=== PATIENT | female | born 1975 | race Caucasian/White ===

== ENCOUNTER → 2020-03-31 14:50 | Outpatient (BNVA) | payer MEDICARE, SELFPAY | PROVIDERS: Family Provider Family Medicine; PCP Nurse Practitioner; Visit Provider Family Medicine | DX: I10 Essential (primary) hypertension (principal); G47.10 Hypersomnia, unspecified; E66.9 Obesity, unspecified; J30.89 Other allergic rhinitis; G54.6 Phantom limb syndrome with pain; K21.9 Gastro-esophageal reflux disease without esophagitis; F17.219 Nicotine dependence, cigarettes, with unspecified nicotine-induced disorders; D64.9 Anemia, unspecified; Z79.899 Other long term (current) drug therapy; Z68.31 Body mass index [BMI] 31.0-31.9, adult; Z12.31 Encounter for screening mammogram for malignant neoplasm of breast | CPT/HCPCS: 80053; 80061; 82044; 82306; 82728; 83550; 85025 ==

== ENCOUNTER 2020-05-22 14:00 | Outpatient (CLI) | payer MEDICARE, SELFPAY ==
--- NOTE | 2020-05-22 14:00 | MM_ITS ---
WS: [id number] BILATERAL SCREENING DIGITAL MAMMOGRAM WITH CAD HISTORY: screening mammogram COMPARISON: None available. Bilateral CC and MLO views submitted. Computer aided detection analyzed. Breast composition: There are scattered areas of fibroglandular density. No suspicious masses, microc alcifications or architectural distortion. MM/[place] [id number] IMPRESSION: BI-RADS: 1-Negative FOLLOW UP: 1 Year Follow-up
== END 2020-05-22 14:01 | disposition home or self-care (01) ==
LOC: RADSHAW 14:03
PROVIDERS: PCP Family Medicine; Visit Provider Family Medicine
DX: Z12.31 Encounter for screening mammogram for malignant neoplasm of breast (principal)
CPT/HCPCS: 77067

== ENCOUNTER 2020-06-22 20:00 | Outpatient (CLI) | payer MEDICARE, SELFPAY | END 2020-06-22 20:01 | disposition home or self-care (01) | LOC: SLEEP 06-23 08:43 | PROVIDERS: PCP Family Medicine; Visit Provider Family Medicine | DX: G47.10 Hypersomnia, unspecified (principal); R06.83 Snoring; R53.83 Other fatigue | CPT/HCPCS: 80048; 95810 ==

== ENCOUNTER → 2020-06-24 13:38 | Outpatient (BNVA) | payer MEDICARE, SELFPAY | PROVIDERS: PCP Family Medicine; Visit Provider Family Medicine | DX: I10 Essential (primary) hypertension (principal) | CPT/HCPCS: 80048 ==

== ENCOUNTER → 2020-11-19 12:04 | Outpatient (BNVA) | payer MEDICARE, SELFPAY | PROVIDERS: PCP Family Medicine; Visit Provider Family Medicine | DX: I10 Essential (primary) hypertension (principal); E78.5 Hyperlipidemia, unspecified; K21.9 Gastro-esophageal reflux disease without esophagitis | CPT/HCPCS: 80053; 80061; 85025 ==

== ENCOUNTER → 2020-11-20 09:13 | Outpatient (BNVA) | payer MEDICARE, SELFPAY | PROVIDERS: PCP Family Medicine; Visit Provider Family Medicine | DX: I10 Essential (primary) hypertension (principal); E78.5 Hyperlipidemia, unspecified; K21.9 Gastro-esophageal reflux disease without esophagitis; D64.9 Anemia, unspecified; F17.219 Nicotine dependence, cigarettes, with unspecified nicotine-induced disorders | CPT/HCPCS: 82607 ==

== ENCOUNTER → 2021-03-01 12:23 | Outpatient (BNVA) | payer MEDICARE, SELFPAY | PROVIDERS: PCP Family Medicine; Visit Provider Family Medicine | DX: D50.8 Other iron deficiency anemias (principal); E78.5 Hyperlipidemia, unspecified; Z71.89 Other specified counseling | CPT/HCPCS: 85025 ==

== ENCOUNTER → 2021-05-20 11:03 | Outpatient (BNVA) | payer MEDICARE, SELFPAY | PROVIDERS: PCP Family Medicine; Visit Provider Family Medicine | DX: E78.5 Hyperlipidemia, unspecified (principal); I10 Essential (primary) hypertension; E53.8 Deficiency of other specified B group vitamins; Z79.899 Other long term (current) drug therapy | CPT/HCPCS: 80053; 80061; 82607; 85025 ==

== ENCOUNTER → 2022-01-14 10:49 | Outpatient (BNVA) | payer MEDICARE, SELFPAY | PROVIDERS: PCP Family Medicine; Visit Provider Family Medicine | DX: I10 Essential (primary) hypertension (principal); E78.5 Hyperlipidemia, unspecified; G54.6 Phantom limb syndrome with pain; K21.9 Gastro-esophageal reflux disease without esophagitis; J30.89 Other allergic rhinitis | CPT/HCPCS: 80053 ==

== ENCOUNTER → 2022-07-15 10:07 | Outpatient (BNVA) | payer MEDICARE, SELFPAY | PROVIDERS: PCP Family Medicine; Visit Provider Family Medicine | DX: I10 Essential (primary) hypertension (principal); E78.5 Hyperlipidemia, unspecified; F41.1 Generalized anxiety disorder | CPT/HCPCS: 80053; 80061; 85025 ==

== ENCOUNTER → 2022-08-04 11:01 | Outpatient (BNVA) | payer MEDICARE, SELFPAY | PROVIDERS: PCP Family Medicine; Visit Provider Family Medicine | DX: F41.1 Generalized anxiety disorder (principal); I10 Essential (primary) hypertension | CPT/HCPCS: 82043 ==

== ENCOUNTER → 2022-08-08 12:53 | Outpatient (BNVA) | payer MEDICARE, SELFPAY | PROVIDERS: PCP Family Medicine; Visit Provider Family Medicine | DX: R05.9 Cough, unspecified (principal); J20.8 Acute bronchitis due to other specified organisms; B96.89 Other specified bacterial agents as the cause of diseases classified elsewhere; R05.1 Acute cough; F17.219 Nicotine dependence, cigarettes, with unspecified nicotine-induced disorders | CPT/HCPCS: 87400; 87426 ==

== ENCOUNTER 2023-01-03 15:05 | Outpatient (CLI) | payer MEDICARE, SELFPAY ==
--- NOTE | 2023-01-03 15:12 | MM_ITS ---
WS: [id number] . BILATERAL SCREENING DIGITAL TOMOSYNTHESIS MAMMOGRAM WITH CAD HISTORY: screening mammogram COMPARISON: 05/22/2020 Bilateral CC and MLO views with tomosynthesis and synthetic mammography submitted. Computer aided det ection analyzed. Breast composition: There are scattered areas of fibroglandular density. No suspicious masses, microc alcifications or architectural distortion. MM/[place] [id number] IMPRESSION: BI-RADS: 1-Negative FOLLOW UP: 1 Year Follow-up
== END 2023-01-03 15:06 | disposition home or self-care (01) ==
LOC: RAD 15:09
PROVIDERS: PCP Family Medicine; Visit Provider Family Medicine
DX: Z12.31 Encounter for screening mammogram for malignant neoplasm of breast (principal)
CPT/HCPCS: 77063; 77067

== ENCOUNTER → 2023-04-04 14:42 | Outpatient (BNVA) | payer MEDICARE, SELFPAY | PROVIDERS: PCP Family Medicine; Visit Provider Family Medicine | DX: I10 Essential (primary) hypertension (principal); E53.8 Deficiency of other specified B group vitamins; Z79.899 Other long term (current) drug therapy | CPT/HCPCS: 80053; 80061; 82043; 82607; 85025 ==

== ENCOUNTER → 2023-08-25 15:19 | Outpatient (BNVA) | payer MEDICARE, SELFPAY | PROVIDERS: PCP Family Medicine; Visit Provider Family Medicine | DX: R30.0 Dysuria (principal); N39.3 Stress incontinence (female) (male); J43.1 Panlobular emphysema | CPT/HCPCS: 81000; 87086 ==

== ENCOUNTER 2023-11-06 14:22 | Outpatient (CLI) | payer MEDICARE, SELFPAY ==
--- NOTE | 2023-11-06 14:26 | XRR_ITS ---
PROCEDURE INFORMATION: Exam: XR Left Shoulder Exam date and time: 11/06/2023 2:29 PM Age: 48 years old Clinical indication: Patient HX: Left shoulder pain due to over compensation after losing right hand TECHNIQUE: Imaging protocol: Radiologic exam of the left shoulder. Views: 2 or more views. COMPARISON: No relevant prior studies available. FINDINGS: Bones/joints: Normal. No fracture or dislocation. No acute osseous or joint abnormality. No arthritic changes. Soft tissues: Normal. XR/XR shoulder LT min 2V* [id number] IMPRESSION: The findings are normal.
--- NOTE | 2023-11-06 14:26 | XRR_ITS ---
PROCEDURE INFORMATION: Exam: XR Bilateral Sacroiliac Joints Exam date and time: 11/06/2023 2:29 PM Age: 48 years old Clinical indication: Other: Low back pain with left sided sciatica TECHNIQUE: Imaging protocol: XR bilateral XR of the sacroiliac joints. Views: 3 or more views. COMPARISON: CR XR lumbar spine 2-3V* [id number] 11/06/2023 2:29 PM FINDINGS: Bones/joints: Normal. No acute fracture. No narrowing, widening, or indistinctness. No lytic or sclerotic bone lesion. Soft tissues: Normal. XR/XR sacroiliac jts m 3V [id number] IMPRESSION: The findings are normal.
--- NOTE | 2023-11-06 14:26 | XRR_ITS ---
PROCEDURE INFORMATION: Exam: XR Lumbosacral Spine Exam date and time: 11/06/2023 2:29 PM Age: 48 years old Clinical indication: Pain; Lumbago with sciatica; Additional info: Low back pain with left-sided sciatica. TECHNIQUE: Imaging protocol: Radiologic exam of the lumbosacral spine. Views: 2 or 3 views. COMPARISON: CR XR sacroiliac jts m 3V [id number] 11/06/2023 2:29 PM FINDINGS: Bones/joints: Marked disc space narrowing L3 through L5. Mild anterior lipping. No fracture, lytic, or sclerotic bone lesion. No acute fracture. Normal alignment. Soft tissues: Unremarkable. Other findings: Mild left curvature. XR/XR lumbar spine 2-3V* [id number] IMPRESSION: Degenerative changes.
== END 2023-11-06 14:23 | disposition home or self-care (01) ==
LOC: RAD 14:23
PROVIDERS: PCP Family Medicine; Visit Provider Family Medicine
DX: M54.42 Lumbago with sciatica, left side (principal); M25.512 Pain in left shoulder; G89.29 Other chronic pain; M47.816 Spondylosis without myelopathy or radiculopathy, lumbar region; I10 Essential (primary) hypertension
CPT/HCPCS: 72100; 72202; 73030; 80053

== ENCOUNTER 2024-04-22 06:00 | Outpatient (RCR) | payer MEDICARE, SELFPAY | END 2024-05-18 23:59 | disposition home or self-care (01) | LOC: MPT 06:00 | PROVIDERS: PCP Family Medicine; Visit Provider Family Medicine | DX: M54.42 Lumbago with sciatica, left side (principal); M54.41 Lumbago with sciatica, right side | CPT/HCPCS: 97110; 97140; 97162; G0283 ==

== ENCOUNTER 2024-05-19 06:00 | Outpatient (RCR) | payer MEDICARE, SELFPAY | END 2024-06-17 23:59 | disposition home or self-care (01) | LOC: MPT 06:00 | PROVIDERS: PCP Family Medicine; Visit Provider Family Medicine | DX: M54.42 Lumbago with sciatica, left side (principal) | CPT/HCPCS: 97110; 97140; G0283 ==

== ENCOUNTER 2024-06-18 06:00 | Outpatient (RCR) | payer MEDICARE, SELFPAY | END 2024-06-20 23:59 | disposition home or self-care (01) | LOC: MPT 06:00 | PROVIDERS: PCP Family Medicine; Visit Provider Family Medicine | DX: M54.42 Lumbago with sciatica, left side (principal) | CPT/HCPCS: 97110; 97140; G0283 ==

== ENCOUNTER 2024-10-25 16:02 | Outpatient (CLI) | payer MEDICARE, SELFPAY ==
--- NOTE | 2024-10-25 16:00 | MR_ITS ---
WS: [id number] MRI LUMBAR SPINE NONCONTRAST TECHNIQUE: Sagittal T1, T2 and STIR imaging. Axial T1 and T2 imaging. CLINICAL INFORMATION: chronic back pain COMPARISON: None. FINDINGS: Some images degraded by motion. Mild lumbar curve. No acute compression. Disc bulging worse at L3-4. L1-L2: No significant disc bulging. Mild facet arthropathy. Spinal canal and foramen are patent. L2-L3: LEFT eccentric disc bulging with slight contact of the far exiting LEFT L2 nerve root. Spinal canal and RIGHT foramen are patent. Mild facet arthropathy L3-L4: Prominent RIGHT subarticular disc protrusion impinges the traversing RIGHT L4 nerve root with moderate central canal stenosis. Moderate facet arthropathy. Severe RIGHT foraminal narrowing impinges the exiting RIGHT L3 nerve root with RIGHT eccentric disc osteophyte complex. L4-L5: Disc osteophyte complex with impingement on the LEFT greater than RIGHT subarticular recess and traversing LEFT L5 nerve root. Moderate facet arthropathy. Moderate RIGHT foraminal narrowing. Mild central canal stenosis. L5-S1: Tiny central protrusion. Tapering of the thecal sac distally. Moderate LEFT foraminal narrowing. RIGHT foramen is patent. Moderate facet arthropathy. Visualized pelvic bony structures: Normal. Paravertebral soft tissues: Normal. Hepatomegaly. MR/MR lumbar spine wo con* [id number] IMPRESSION: 1. Prominent RIGHT subarticular disc protrusion L3-4 impinges the traversing R IGHT L4 nerve root in the subarticular recess. Moderate central canal stenosis. Severe RIGHT L3-4 foraminal narrowing impinges the exiting RIGHT L3 nerve root . 2. Disc osteophyte complex L4-5 impinges the traversing LEFT greater than RIGH T L5 nerve roots with mild central canal stenosis. Moderate RIGHT foraminal mark rowing at this level 3. Moderate LEFT L5-S1 foraminal narrowing impinges the exiting LEFT L5 nerve root.
== END 2024-10-25 16:03 | disposition home or self-care (01) ==
LOC: RAD 16:03
PROVIDERS: PCP Family Medicine; Visit Provider Family Medicine
DX: M54.42 Lumbago with sciatica, left side (principal); G89.29 Other chronic pain; R50.9 Fever, unspecified; M51.26 Other intervertebral disc displacement, lumbar region; M48.061 Spinal stenosis, lumbar region without neurogenic claudication; M25.78 Osteophyte, vertebrae; M48.07 Spinal stenosis, lumbosacral region; R93.7 Abnormal findings on diagnostic imaging of other parts of musculoskeletal system; M43.8X6 Other specified deforming dorsopathies, lumbar region; M51.369 Other intervertebral disc degeneration, lumbar region without mention of lumbar back pain or lower extremity pain; M47.896 Other spondylosis, lumbar region; M47.897 Other spondylosis, lumbosacral region; R16.0 Hepatomegaly, not elsewhere classified
CPT/HCPCS: 72148; 87400

== ENCOUNTER → 2024-11-07 14:24 | Outpatient (BNVA) | payer MEDICARE, SELFPAY | PROVIDERS: PCP Family Medicine; Referring Provider Family Medicine; Visit Provider Orthopaedic Surgery | DX: M54.42 Lumbago with sciatica, left side (principal); G89.29 Other chronic pain; M54.9 Dorsalgia, unspecified | CPT/HCPCS: 99214 ==

== ENCOUNTER → 2024-11-13 14:01 | Outpatient (BNVA) | payer MEDICARE, SELFPAY | PROVIDERS: PCP Family Medicine; Visit Provider Nurse Practitioner Family | DX: M79.18 Myalgia, other site (principal); M54.42 Lumbago with sciatica, left side; G89.29 Other chronic pain; M47.816 Spondylosis without myelopathy or radiculopathy, lumbar region; F17.210 Nicotine dependence, cigarettes, uncomplicated | CPT/HCPCS: 20553; 99214; J1010; J3490 ==

== ENCOUNTER → 2024-11-20 14:24 | Outpatient (BNVA) | payer MEDICARE, SELFPAY | PROVIDERS: PCP Family Medicine; Visit Provider Anesthesiology Pain Medicine | DX: M54.16 Radiculopathy, lumbar region (principal); M54.42 Lumbago with sciatica, left side; G89.29 Other chronic pain; M54.9 Dorsalgia, unspecified | CPT/HCPCS: 64483; 64484; J1100; J3490 ==

== ENCOUNTER → 2024-12-04 13:53 | Outpatient (BNVA) | payer MEDICARE, SELFPAY | PROVIDERS: PCP Family Medicine; Visit Provider Nurse Practitioner Family | DX: M54.42 Lumbago with sciatica, left side (principal); G89.29 Other chronic pain; M47.816 Spondylosis without myelopathy or radiculopathy, lumbar region | CPT/HCPCS: 99213 ==

== ENCOUNTER → 2024-12-25 13:58 | Outpatient (BNVA) | payer MEDICARE, SELFPAY | PROVIDERS: PCP Family Medicine; Visit Provider Anesthesiology Pain Medicine | DX: M54.16 Radiculopathy, lumbar region (principal); M54.42 Lumbago with sciatica, left side; G89.29 Other chronic pain; M54.9 Dorsalgia, unspecified; F17.210 Nicotine dependence, cigarettes, uncomplicated | CPT/HCPCS: 64483; 64484; J1100; J3490; J9999 ==

== ENCOUNTER → 2025-01-08 10:29 | Outpatient (BNVA) | payer MEDICARE, SELFPAY | PROVIDERS: PCP Family Medicine; Visit Provider Nurse Practitioner Family | DX: M54.42 Lumbago with sciatica, left side (principal); G89.29 Other chronic pain; M47.816 Spondylosis without myelopathy or radiculopathy, lumbar region | CPT/HCPCS: 99213 ==

== ENCOUNTER → 2025-01-22 10:34 | Outpatient (BNVA) | payer MEDICARE, SELFPAY | PROVIDERS: PCP Family Medicine; Visit Provider Anesthesiology Pain Medicine | DX: M47.816 Spondylosis without myelopathy or radiculopathy, lumbar region (principal); M54.42 Lumbago with sciatica, left side; G89.29 Other chronic pain | CPT/HCPCS: 64493; 64494; 64495; J3490; J9999 ==

== ENCOUNTER → 2025-02-05 10:21 | Outpatient (BNVA) | payer MEDICARE, SELFPAY | PROVIDERS: PCP Family Medicine; Visit Provider Nurse Practitioner Family | DX: M54.42 Lumbago with sciatica, left side (principal); G89.29 Other chronic pain; M47.816 Spondylosis without myelopathy or radiculopathy, lumbar region | CPT/HCPCS: 99214 ==

== ENCOUNTER → 2025-02-26 10:46 | Outpatient (BNVA) | payer MEDICARE, SELFPAY | PROVIDERS: PCP Family Medicine; Visit Provider Anesthesiology Pain Medicine | DX: M47.816 Spondylosis without myelopathy or radiculopathy, lumbar region (principal); M54.42 Lumbago with sciatica, left side; G89.29 Other chronic pain | CPT/HCPCS: 64493; 64494; 64495; J3490; J9999 ==

== ENCOUNTER → 2025-03-03 13:37 | Outpatient (BNVA) | payer MEDICARE, SELFPAY | PROVIDERS: PCP Family Medicine; Visit Provider Nurse Practitioner Family | DX: M54.42 Lumbago with sciatica, left side (principal); G89.29 Other chronic pain; M47.816 Spondylosis without myelopathy or radiculopathy, lumbar region | CPT/HCPCS: 99214 ==

== ENCOUNTER → 2025-03-18 12:57 | Outpatient (BNVA) | payer MEDICARE, SELFPAY | PROVIDERS: PCP Family Medicine; Visit Provider Anesthesiology Pain Medicine | DX: M47.816 Spondylosis without myelopathy or radiculopathy, lumbar region (principal); M54.9 Dorsalgia, unspecified; M54.42 Lumbago with sciatica, left side; G89.29 Other chronic pain | CPT/HCPCS: 64635; 64636; J1100; J9999 ==

== ENCOUNTER → 2025-04-01 12:56 | Outpatient (BNVA) | payer MEDICARE, SELFPAY | PROVIDERS: PCP Family Medicine; Visit Provider Anesthesiology Pain Medicine | DX: M47.816 Spondylosis without myelopathy or radiculopathy, lumbar region (principal); M54.9 Dorsalgia, unspecified; M54.42 Lumbago with sciatica, left side | CPT/HCPCS: 64635; 64636; J1100; J9999 ==

== ENCOUNTER → 2025-04-15 10:32 | Outpatient (BNVA) | payer MEDICARE, SELFPAY | PROVIDERS: PCP Family Medicine; Visit Provider Nurse Practitioner Family | DX: M47.816 Spondylosis without myelopathy or radiculopathy, lumbar region (principal); M25.551 Pain in right hip; G89.29 Other chronic pain; M54.42 Lumbago with sciatica, left side; M25.552 Pain in left hip | CPT/HCPCS: 20610; 99214; J1010; J3490 ==

== ENCOUNTER → 2025-04-29 09:03 | Outpatient (BNVA) | payer MEDICARE, SELFPAY | PROVIDERS: PCP Family Medicine; Visit Provider Nurse Practitioner Family | DX: M70.62 Trochanteric bursitis, left hip (principal); M70.61 Trochanteric bursitis, right hip; G89.29 Other chronic pain; M54.42 Lumbago with sciatica, left side; M47.816 Spondylosis without myelopathy or radiculopathy, lumbar region; M25.552 Pain in left hip; Z87.891 Personal history of nicotine dependence | CPT/HCPCS: 20610; 99214; J1010; J3490 ==

== ENCOUNTER → 2025-05-12 15:33 | Outpatient (BNVA) | payer MEDICARE, SELFPAY | PROVIDERS: PCP Family Medicine; Visit Provider Family Medicine | DX: I10 Essential (primary) hypertension (principal) | CPT/HCPCS: 80053; 80061; 84439; 84443; 85025 ==

== ENCOUNTER → 2025-06-10 13:18 | Outpatient (BNVA) | payer MEDICARE, SELFPAY | PROVIDERS: PCP Family Medicine; Visit Provider Nurse Practitioner Family | DX: M25.512 Pain in left shoulder (principal); M47.816 Spondylosis without myelopathy or radiculopathy, lumbar region; G89.29 Other chronic pain | CPT/HCPCS: 20610; 80053; 80061; 84439; 84443; 99214; J1010; J3490 ==

== ENCOUNTER → 2025-07-22 10:58 | Outpatient (BNVA) | payer MEDICARE, SELFPAY | PROVIDERS: PCP Family Medicine; Visit Provider Nurse Practitioner Family | DX: M25.512 Pain in left shoulder (principal); M47.816 Spondylosis without myelopathy or radiculopathy, lumbar region; M25.551 Pain in right hip; M25.552 Pain in left hip; G89.29 Other chronic pain | CPT/HCPCS: 73030; 99214 ==